=== PATIENT | female | born 1990 | race American Indian/Alaskan Native ===

== ENCOUNTER 2022-01-01 11:14 | Emergency (ER) | payer MEDICAID ==
[2022-01-01 11:49] VITALS: BP 104/65
[2022-01-01 12:15] LABS: WBC,Urine < 1.0 /HPF (0.0-6.0)
[2022-01-01 12:21] LABS: RBC,Urine < 1.0 /HPF (0.0-6.0)
== END 2022-01-02 06:39 | disposition left against medical advice (07) ==
LOC: ED 11:14
DX: M54.9 Dorsalgia, unspecified (principal); R10.9 Unspecified abdominal pain; Z53.21 Procedure and treatment not carried out due to patient leaving prior to being seen by health care provider
CPT/HCPCS: 81015